=== PATIENT | female | born 1980 | race Caucasian/White ===

== ENCOUNTER 2016-10-29 13:00 | Outpatient (RCR) | payer BC, OTHER ==
--- OUTSIDE RECORDS SUMMARY | 2016-10-05 08:28 | XMS REPORT | Continuity of Care Document ---
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 Name Role Phone RADHA PATINO MD PCP Insurance Providers Payer Name Policy Number Subscriber Name Relationship [facility] [id number] Anni Levy 18 Self / Same As Patient Self Pay Pending Joann Apprv [id number] nAni Levy 18 Self / Same As Patient Advance Directives Directive Response Recorded Date/Time Advance Directives No 12/13/14 3:40am Health Care Power of Director Of Campus Recreation Yes 12/13/14 3:40am Organ Donor No 12/13/14 3:40am Problems Medical Problems Problem Onset Date Status Upper back pain Unknown Active Jaw pain Unknown Active Upper back pain Unknown Active Alcohol intoxication Unknown Active Intoxication Unknown Active Self-inflicted laceration of wrist Unknown Active Suicide attempt Unknown Active Alcohol intoxication Unknown Active Medications Medication Dose Route Sig Days/Qty Instructions Order Date Discontinued Date Status Paroxetine HCl 40 Tab PO AFTERNOON 02/08/11 10/07/14 Discontinued Buspirone HCl 15 Mg PO TWICE A DAY 02/08/11 10/07/14 Discontinued Methadone Hcl 50 Mg PO DAILY 02/08/11 10/07/14 Discontinued Clonazepam 6 Mg PO BEDTIME 02/08/11 10/07/14 Discontinued Prednisone 5 Mg PO DAILY 03/03/12 Active Trazodone Hcl 25-50 Mg PO BEDTIME 03/03/12 12/13/14 Discontinued Paroxetine HCl 1 Tab PO BEDTIME TOTAL OF 60 MG DAILY 04/27/12 Discontinued Alprazolam 1 Mg PO TWICE A DAY 04/27/12 12/13/14 Discontinued Ibuprofen 1 Each PO FOUR TIMES DAILY 05/02/12 05/02/12 Discontinued Ibuprofen 1 Each PO EVERY 6 HOURS 40 Qty 05/02/12 12/13/14 Discontinued Buprenorphine Hcl/Naloxone Hcl 1 Film SL DAILY 10/07/14 Active Fluvoxamine Maleate 300 Mg PO BEDTIME TAKES 3 (100MG) CAPSULES Active Lamotrigine 150 Mg PO TWICE A DAY 10/07/14 Active Propranolol HCl 60 Mg PO TWICE A DAY 10/07/14 Active Alprazolam 1 Mg PO THREE TIMES A DAY 0 Qty 12/13/14 12/13/14 Discontinued Lamotrigine 75 Mg PO NEEDED 0 Qty 12/13/14 12/13/14 Discontinued Naproxen Sodium 440 Mg PO EVERY 4HRS PRN MIGRAINE 0 Qty 12/13/1412/13 Discontinued Prednisone 5 Mg PO DAILY 10 Qty 12/13/14 12/13/14 Discontinued Trazodone Hcl 25-50 Mg PO BEDTIME 12/13/14 Active Naproxen Sodium 440 Mg PO EVERY 4HRS TAKES 2 (220MG) TABLETS 12/13/14 Active Alprazolam 1 Mg PO THREE TIMES A DAY PRN ANXIETY 12/13/14 Active Diphenhydramine HCl (Benadryl) 25 Mg PO DAILY PRN ALLERGIES 12/13/14 Active Hyoscyamine Sulfate 0.125 Mg SL EVERY 4HRS PRN ABDOMINAL PAIN Active Social History Social History Problem Response Recorded Date/Time Alcohol Use Past History 12/13/2014 3:44am 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 Plan of Care No plan of care. Functional Status No functional status results. Allergies, Adverse Reactions, Alerts Allergen Type Severity Reaction Status Last Updated Sulfa (Sulfonamide Antibiotics) ([id number]) Allergy Unknown Active gluten ([id number]) Allergy Unknown Active 12/13/14 Immunizations Name Given Type Date of Influenza Vaccine 07/17/14 Historical Vital Signs No known vital signs results. Results No known relevant diagnostic tests, laboratory data and/or discharge summary. Procedures No known history of procedures. Encounters Encounter Location Date/Time Discharged Recurring [facility] 03/12/15 8:47am
[~2016-10-29 13:00] MED LIST: ALPR.5T PO; ALPR1TAB2 PO; ALPR1TAB7 PO; BSP10T PO; BUPR1FIL3 SL; BUSP10TA95 PO; CALC-149 PO; CEPH-507 PO; CEPH500C PO; CLON2TAB3 PO; CYCL10TA9 PO; DIPH25TA82 PO; ESTR42.52; FLUV100C2 PO; HYDR-3812 PO; HYDR50CA PO; HYOS0.127 SL; IBP600T1 PO; IBUP-1773 PO; LAMO100T65 PO; LAMO150T2 PO; LAMO200T3 PO; LEVO500T2 PO; METH10TA2 PO; MULT-608 PO; NAPR-710 PO; NAPR220T29 PO; ONDA4TAB8 PO; ONDA4TAB8 SL; OXC5T PO; OXYC-471 PO; PHEN-640 PO; PHEN-827 PO; POTASSIUM CITRATE; PRD5T PO; PRED5TAB PO; PRM25T PO; PROP60CA PO; PROP60CA17 PO; PROP60TA16 PO; PRX20T PO; QUET150T PO; QUET25TA73 PO; RANI150C11 PO; RANI300C PO; TAMS0.4C98 PO; TRAM50TA2 PO; TRAZ-144 PO; TRAZ150T42 PO; [UNRECOGNIZED DRUG - OTHER]
== END 2016-12-06 13:16 | disposition home or self-care (01) ==
DX: M54.2 Cervicalgia (principal); M54.6 Pain in thoracic spine

== ENCOUNTER → 2017-01-07 | Outpatient (CLI) | payer BC ==
[2017-01-07 10:44] LABS: BASOPHILS % (AUTO) 1 % (0-10); EOSINOPHILS # (AUTO) 0.4 10^3/uL (0.0-0.3); EOSINOPHILS % (AUTO) 6 % (0-10); LYMPHOCYTES # (AUTO) 2.5 X 10^3 (1.0-4.0); LYMPHOCYTES % (AUTO) 39 % (12-44); MEAN CORPUSCULAR HEMOGLOBIN 29 PG (25-34); MEAN CORPUSCULAR HGB CONC 34 G/DL (32-36); MEAN CORPUSCULAR VOLUME 86 FL (80-99); MEAN PLATELET VOLUME 9.1 FL (7.4-10.4); MONOCYTES # (AUTO) 0.7 X 10^3 (0.0-1.0); MONOCYTES % (AUTO) 11 % (0-12); NEUTROPHILS # (AUTO) 2.8 X 10^3 (1.8-7.8); NEUTROPHILS % (AUTO) 44 % (42-75); PLATELET COUNT 391 10^3/uL (130-400); RED BLOOD COUNT 4.41 10^6/uL (4.35-5.85); RED CELL DISTRIBUTION WIDTH 13.5 % (10.0-14.5); WHITE BLOOD COUNT 6.4 10^3/uL (4.3-11.0)
[2017-01-07 11:03] LABS: ALANINE AMINOTRANSFERASE 18 U/L (0-55); ALBUMIN 4.3 G/DL (3.2-4.5); ANION GAP 10 MMOL/L (5-14); ASPARTATE AMINO TRANSFERASE 18 U/L (5-34); BILIRUBIN,TOTAL 0.2 MG/DL (0.1-1.0); BLOOD UREA NITROGEN 8 MG/DL (7-18); BUN/CREATININE RATIO 10; CARBON DIOXIDE 24 MMOL/L (21-32); CHLORIDE 103 MMOL/L (98-107); CREATININE SERUM 0.77 MG/DL (0.60-1.30); GFR ESTIMATED > 60; GLUCOSE 89 MG/DL (70-105); POTASSIUM 3.9 MMOL/L (3.6-5.0); SODIUM 137 MMOL/L (135-145); TOTAL PROTEIN 6.9 G/DL (6.4-8.2)
[2017-01-07 11:23] LABS: THYROID STIMULATING HORMONE 2.32 UIU/ML (0.35-4.94)
== END ==
LOC: LAB 10:17
PROVIDERS: ATTEND Internal Medicine Endocrinology, Diabetes & Metabolism
DX: E27.49 Other adrenocortical insufficiency (principal); E03.9 Hypothyroidism, unspecified
CPT/HCPCS: 36415; 80053; 82533; 84146; 84443; 85025

== ENCOUNTER 2017-06-21 11:15 | Outpatient (RCR) | payer BC, OTHER | END 2017-07-16 | disposition home or self-care (01) | PROVIDERS: ATTEND Internal Medicine | DX: M54.6 Pain in thoracic spine (principal) ==

== ENCOUNTER → 2017-06-28 | Outpatient (CLI) | payer BC ==
--- NOTE | 2017-06-28 13:40 | Diagnostic Imaging Report ---
PROCEDURE: MR imaging of the brain without contrast. TECHNIQUE: Multiplanar, multisequence MR imaging of the brain was performed without contrast. INDICATION: Migraine headaches. FINDINGS: There is no diffusion restriction to suggest an acute infarct or other diffusion abnormality. There is a CSF intensity oval lesion in the right basal ganglia measuring 1.1 cm in length favored to be related to a prominent perivascular space. There is otherwise no significant abnormality in the wall or white matter signal. The brainstem and cerebellum also appear unremarkable. There is no hydrocephalus. No extra-axial fluid collection is seen. The central vascular flow voids appear grossly unremarkable. The pituitary gland is normal in size. No hypothalamic or pineal region mass. The internal auditory canals and inner ear structures and cerebellopontine angles appear unremarkable. There is minimal mucosal thickening in the ethmoidal air cells. The orbits appear grossly unremarkable. IMPRESSION: No significant abnormality is seen in the brain. There is minimal mucosal thickening in the ethmoidal air cells. Dictated by: Dictated on workstation # [id number]
== END ==
LOC: RAD 07:53
PROVIDERS: ATTEND Internal Medicine
DX: R51 Headache (principal); R20.2 Paresthesia of skin; R53.1 Weakness
CPT/HCPCS: 70551

== ENCOUNTER → 2017-09-19 | Outpatient (CLI) | payer BC ==
--- NOTE | 2017-09-19 18:25 | Diagnostic Imaging Report ---
PROCEDURE: CT abdomen and pelvis without contrast. TECHNIQUE: Multiple contiguous axial images were obtained through the abdomen and pelvis without the use of intravenous contrast. INDICATION: Hematuria. COMPARISON: 01/14/2016. FINDINGS: The lung bases are clear. The liver, the gallbladder, the spleen, the pancreas, and the adrenal glands appear unremarkable for an unenhanced exam. There is a 1.3 cm stone in the left renal pelvis with no significant hydronephrosis. There is a 4 mm stone in the upper pole of the left kidney as well. No ureteric stone is seen. The urinary bladder appears unremarkable. The abdominal aorta is normal in caliber. No para-aortic significantly enlarged node is seen. There is mild wall thickening seen in the colon. Nonspecific fatty stranding is seen in the pelvis. There is suggestion of prior hysterectomy. The cecum projects into the upper mid pelvis, and the appendix is probably in the midline posteriorly in the upper pelvis with no definite abnormality. No significant free fluid or fluid collection is identified. The osseous structures appear grossly unremarkable. IMPRESSION: 1. There is a nonobstructive stone in the left renal pelvis measuring 1.3 cm. 2. Nonobstructive stone in the upper pole of the left kidney measuring 4 mm is seen. 3. There is slight prominent wall thickness of the colon and minimal nonspecific stranding in the pelvis, which could relate to colitis. Correlate clinically. Dictated by: Dictated on workstation # [id number]
--- NOTE | 2017-09-19 21:08 | Diagnostic Imaging Report ---
EXAMINATION: Supine view of the abdomen. INDICATION: Hematuria. FINDINGS: There is a 1.2 cm stone seen in the left flank as confirmed on comparison CT scan from 09/19/2017. It is relatively faint but visible. Multiple calcifications in the pelvis are compatible with phleboliths. IMPRESSION: A 1.2 cm left flank calcification is compatible with left renal pelvis stone as confirmed on CT from the same day. Dictated by: Dictated on workstation # [id number]
== END ==
LOC: RAD 12:38
PROVIDERS: ATTEND Urology
DX: N20.0 Calculus of kidney (principal); K63.89 Other specified diseases of intestine
CPT/HCPCS: 74000; 74176

== ENCOUNTER 2017-09-23 08:00 | Outpatient (CLI) | payer BC ==
[~2017-09-23] VITALS: Ht 167.6 cm; Wt 66.3 kg
[2017-09-23 08:23] VITALS: BP 112/73
[2017-09-23] MEDS ORDERED: HYOS-19 SL (09:58)
[2017-09-23] MEDS ORDERED: LAMO150T2 PO (09:58)
[2017-09-23] MEDS ORDERED: CETI10TA17 PO (09:58)
[2017-09-23] MEDS ORDERED: FLUV100T3 PO ×2 (09:58)
[2017-09-23] MEDS ORDERED: FLUT9.9S NS (09:58)
[2017-09-23] MEDS ORDERED: PROM25TA14 PO (09:58)
[2017-09-23] MEDS ORDERED: POTA15TA PO (09:58)
[2017-09-23] MEDS ORDERED: BUSP10TA95 PO (09:58)
[2017-09-23] MEDS ORDERED: AMIT25TA9 PO (09:58)
[2017-09-23] MEDS ORDERED: FLUO20CA25 PO (09:58)
[2017-09-23] MEDS ORDERED: ESTR42.52 VG (09:58)
[2017-09-23] MEDS ORDERED: BUTA1CAP37 PO (09:58)
[2017-09-23] MEDS ORDERED: PRED5TAB PO (09:58)
[2017-09-23] MEDS ORDERED: LINA290C PO (09:58)
== END 2017-09-23 09:59 ==
LOC: PREOP 08:00
PROVIDERS: ATTEND Urology
DX: Z01.818 Encounter for other preprocedural examination (principal); Z11.2 Encounter for screening for other bacterial diseases; N20.0 Calculus of kidney
CPT/HCPCS: 87081

== ENCOUNTER 2017-10-04 06:00 | Day surgery (SDC) | payer BC ==
[~2017-10-04] VITALS: Ht 167.6 cm; Wt 66.3 kg
[~2017-10-04 06:00] MED LIST changes: +AMIT25TA9 PO; +BUTA1CAP37 PO; +CETI10TA17 PO; +ESTR42.52 VG; +FLUO20CA25 PO; +FLUT9.9S NS; +FLUV100T3 PO; +HYOS-19 SL; +LINA290C PO; +POTA15TA PO; +PROM25TA14 PO
[2017-10-04] MEDS ORDERED: cefTRIAXone 1 GM (ROCEPHIN) VIAL ONE (06:23)
[2017-10-04] MEDS ORDERED: NS (IVPB) 50 ML ONE (06:23)
[2017-10-04] MEDS: LACTATED RINGERS 1,000 ML IV PRN ×2 (06:30→08:50)
--- NOTE | 2017-10-04 06:51 | Progress Note-Pre Operative ---
Pre-Operative Progress Note H&P Reviewed The H&P was reviewed, patient examined and no changes noted. Date Seen by Provider: Oct 04, 2017 Time Seen by Provider: 06:51 Date H&P Reviewed: Oct 04, 2017 Time H&P Reviewed: 06:51 Pre-Operative Diagnosis: LT RENAL STONE CAMPBELL DANIELS MD Oct 04, 2017 6:51 am
--- NOTE | 2017-10-04 06:54 | Progress Note-Post Operative ---
Post-Operative Progess Note Surgeon (s)/Dead Mail Checker (s) Surgeon CAMPBELL DANIELS MD Dead Mail Checker: N/A Pre-Operative Diagnosis LT RENAL STONE Post-Operative Diagnosis SAME Procedure & Operative Findings Date of Procedure 10/04/17 Procedure Performed/Findings LT ESWL Anesthesia Type GENERAL Estimated Blood Loss Estimated blood loss (mL): N/A Specimens/Packing Specimens Removed N/A Packing: N/A CAMPBELL DANIELS MD Oct 04, 2017 6:54 am
--- NOTE | 2017-10-04 06:58 | Discharge Inst-Urology ---
Discharge Inst-Urology Discharge Medications New, Converted, or Re-newed RX: RX on Chart Patient Instructions/Follow Up Plan Please make appointment to been seen in office Tuesday 10/24, KUB prior to it KUB on way home Post ESWL instructions Increase oral fluids for 48 hours and then as needed. Diet and Activity as tolerated. If questions or concerns contact your physician Or seek help at emergency department. CAMPBELL DANIELS MD Oct 04, 2017 6:58 am
[2017-10-04] MEDS ORDERED: CATHETER FLUSH 10 ML SYR IV PRN (07:00)
[2017-10-04] MEDS ORDERED: cefTRIAXone INJECTION 1,000 MG in NS (IVPB) 50 ML IV ONE ×2 (07:00→07:15)
[2017-10-04] MEDS ORDERED: SEVOFLURANE (ULTANE) 15 ML INHAL SOLN ONE ×5 (07:11→09:46)
[2017-10-04] MEDS ORDERED: FUROSEMIDE 40 MG/4 ML INJ (LASIX) ONE (07:11)
[2017-10-04] MEDS ORDERED: KETOROLAC 30 MG/ML VIAL ONE (07:11)
[2017-10-04] MEDS ORDERED: proPOfol 200 MG/20 ML (DIPRIVAN) VIAL IV ONE (07:11)
[2017-10-04] MEDS ORDERED: LIDOCAINE PF 2% 5 ML (XYLOCAINE) VIAL ONE (07:11)
--- NOTE | 2017-10-04 07:11 | Diagnostic Imaging Report ---
INDICATION: Screening prior to ESWL. Comparison made with prior examination from 09/19/2017. FINDINGS: The bowel gas pattern is nonspecific. There are multiple calcified phleboliths in the pelvis. The previously seen stone overlying the left kidney is less apparent on today's exam. Some of this may be obscured by stool and bowel gas. IMPRESSION: The previously seen stone in the proximal left renal collecting system is difficult to see on this exam. Multiple calcified phleboliths in the pelvis. Dictated by: Dictated on workstation # [id number]
[2017-10-04] MEDS ORDERED: fentaNYL INJECTION 100 MCG/2 ML AMP ONE (07:12)
[2017-10-04] MEDS ORDERED: MIDAZOLAM 2 MG/2 ML (VERSED) VIAL ONE (07:13)
[2017-10-04] MEDS ORDERED: KETAMINE HCL 100 MG/ML 5 ML VIAL ONE (07:13)
[2017-10-04 07:25] VITALS: BP 120/80
--- NOTE | 2017-10-04 08:34 | Progress Note-Post Operative ---
Post-Operative Progess Note Surgeon (s)/System Support Specialist (s) Surgeon CAMPBELL DANIELS MD System Support Specialist: N/A Pre-Operative Diagnosis LT RENAL STONE Post-Operative Diagnosis same Procedure & Operative Findings Date of Procedure 10/04/17 Procedure Performed/Findings LT ESWL Anesthesia Type GENERAL Estimated Blood Loss Estimated blood loss (mL): N/A Specimens/Packing Specimens Removed N/A Packing: N/A CAMPBELL DANIELS MD Oct 04, 2017 8:34 am
[2017-10-04] MEDS ORDERED: ONDANSETRON 4 MG/2 ML (SDV) Z0FRAN IVP PRN (09:00)
[2017-10-04 09:30] VITALS: BP 113/78
[2017-10-04] MEDS ORDERED: TAMS0.4C98 PO (09:48)
[2017-10-04] MEDS ORDERED: NITR-68 PO (09:48)
[2017-10-04 10:00] VITALS: BP 107/71
[2017-10-04 10:30] VITALS: BP 121/71
[2017-10-04 11:09] VITALS: BP 121/71
--- NOTE | 2017-10-04 12:37 | Diagnostic Imaging Report ---
INDICATION: Status post ESWL. COMPARISON: Earlier same day. CT abdomen dated 09/29/2017. FINDINGS: Single supine radiographic view of the abdomen was obtained. Previously described left-sided nephrolithiasis is again inconspicuous. Multiple left-sided pelvic phleboliths are noted. No other unexpected extraosseous calcifications or radiopaque foreign bodies are seen. Small bowel loops are nondistended. Bony structures show no gross acute abnormalities. IMPRESSION: 1. Patient's known left-sided nephrolithiasis remains inconspicuous. Dictated by: Dictated on workstation # [id number]
[2017-10-04 13:37] VITALS: BP 121/71
--- NOTE | 2017-10-04 14:45 | OPERATIVE REPORT ---
DATE OF SERVICE: 10/04/2017 PREOPERATIVE DIAGNOSIS: Left ureteral stone. POSTOPERATIVE DIAGNOSIS: Left ureteral stone. OPERATION PERFORMED: Left ESWL. SURGEON: Teto Daniels MD ANESTHESIA: General. COMPLICATIONS: None. PROCEDURE: Under satisfactory general anesthesia, the patient in supine position on the ESWL table, the left renal stone was localized. We started delivering shocks up to 850. Then, the x-ray equipment broke down and waiting to fix it. We tried to do ultrasound. We localized the stone. However, by that time, the x-ray came back and we were able to continue under fluoroscopy to deliver 2500 shocks with what looked as good fragmentation of the stone. The patient received 40 mg of Lasix and 30 mg of Toradol IV. She tolerated the procedure and anesthesia well and was sent to recovery room in stable condition. Job ID: [id number] DocumentID: [id number] Dictated Date: 10/04/2017 08:38:06 Statement Clerk Date: 10/04/2017 14:18:05 Dictated By: TETO DANIELS MD
== END 2017-10-04 11:09 | disposition home or self-care (01) ==
LOC: SDC 06:00
PROVIDERS: ATTEND Urology
DX: N20.1 Calculus of ureter (principal); F31.9 Bipolar disorder, unspecified; F41.9 Anxiety disorder, unspecified; E27.40 Unspecified adrenocortical insufficiency; K58.9 Irritable bowel syndrome, unspecified; R51 Headache; F17.210 Nicotine dependence, cigarettes, uncomplicated; Z79.899 Other long term (current) drug therapy
CPT/HCPCS: 74000

== ENCOUNTER → 2017-10-14 | Outpatient (CLI) | payer BC ==
[~2017-10-14] MED LIST changes: +ACHD5005 PO; -HYDR-3812 PO; +NITR-68 PO
[2017-10-14 12:38] LABS: HEMOGLOBIN 12.8 G/DL (11.5-16.0); RED BLOOD COUNT 4.38 10^6/uL (4.35-5.85); RED CELL DISTRIBUTION WIDTH 13.3 % (10.0-14.5); WHITE BLOOD COUNT 7.5 10^3/uL (4.3-11.0)
[2017-10-14 12:59] LABS: ALANINE AMINOTRANSFERASE 19 U/L (0-55); ALBUMIN 4.3 GM/DL (3.2-4.5); ALKALINE PHOSPHATASE 46 U/L (40-136); BILIRUBIN,TOTAL 0.3 MG/DL (0.1-1.0); BUN/CREATININE RATIO 8; CALCIUM 9.3 MG/DL (8.5-10.1); CARBON DIOXIDE 27 MMOL/L (21-32); CHLORIDE 101 MMOL/L (98-107); CHOLESTEROL 246 MG/DL (< 200); CREATININE SERUM 0.78 MG/DL (0.60-1.30); GFR ESTIMATED > 60; GLUCOSE 97 MG/DL (70-105); HDL CHOLESTEROL 65 MG/DL (40-60); POTASSIUM 4.3 MMOL/L (3.6-5.0); SODIUM 137 MMOL/L (135-145); TOTAL PROTEIN 7.2 GM/DL (6.4-8.2); TRIGLYCERIDES 115 MG/DL (<150); VLDL CHOLESTEROL 23 MG/DL (5-40)
[2017-10-14 13:20] LABS: FREE T4 (FREE THYROXINE) 1.16 NG/DL (0.70-1.48)
== END ==
LOC: LAB 12:04
PROVIDERS: ATTEND Internal Medicine Endocrinology, Diabetes & Metabolism
DX: E27.40 Unspecified adrenocortical insufficiency (principal); E22.1 Hyperprolactinemia; E06.3 Autoimmune thyroiditis
CPT/HCPCS: 36415; 80053; 80061; 84146; 84244; 84439; 84443; 85027

== ENCOUNTER → 2017-11-07 | Outpatient (CLI) | payer BC, MEDICAID ==
--- NOTE | 2017-11-07 12:19 | Diagnostic Imaging Report ---
INDICATION: Renal stones, status post lithotripsy on the left on 10/04/2017. TIME OF EXAM: 11:48 a.m. COMPARISON: Comparison is made with prior radiographs from 10/04/2017. FINDINGS: The bowel gas pattern is unremarkable. The right renal shadow is obscured by bowel contents. There is questionable vague calcific density noted along the medial aspect of the left renal shadow, perhaps urinary tract in origin. Pelvic calcifications are stable and likely phleboliths. IMPRESSION: Questionable tiny left upper urinary tract calculi. The study is otherwise unremarkable. Dictated by: Dictated on workstation # [id number]
== END ==
LOC: RAD 11:18
PROVIDERS: ATTEND Urology
DX: N20.0 Calculus of kidney (principal); Z98.890 Other specified postprocedural states
CPT/HCPCS: 74018

== ENCOUNTER 2018-03-21 10:25 | Outpatient (RCR) | payer MEDICAID | END 2018-06-19 | disposition home or self-care (01) | LOC: LAB 10:25 | PROVIDERS: ATTEND Urology | DX: Z87.442 Personal history of urinary calculi (principal) | CPT/HCPCS: 36415; 82140; 82340; 82507; 82570; 83735; 83945; 83986; 84105; 84133; 84300; 84392; 84560 ==

== ENCOUNTER 2018-08-03 11:30 | Outpatient (CLI) | payer MEDICAID ==
[~2018-08-03] VITALS: Ht 167.6 cm; Wt 66.3 kg
[~2018-08-03 11:30] MED LIST changes: +HYDR10TA13 PO; +HYDR5TAB2 PO; +LAMO200T2 PO; +PROP120C3 PO
== END 2018-08-03 12:27 | disposition home or self-care (01) ==
LOC: PREOP 11:30
PROVIDERS: ATTEND Surgery
DX: Z01.818 Encounter for other preprocedural examination (principal)

== ENCOUNTER 2018-08-07 09:29 | Day surgery (SDC) | payer MEDICAID ==
[~2018-08-07] VITALS: Ht 167.6 cm; Wt 66.3 kg
[2018-08-07 09:35] VITALS: BP 115/81
[2018-08-07] MEDS ORDERED: LACTATED RINGERS 1,000 ML IV STA (09:36)
[2018-08-07] MEDS ORDERED: HURRICAINE EXT TUBE (BENZOCAINE) XX PRN (09:45)
[2018-08-07] MEDS ORDERED: HURRICAINE EXT TUBE (BENZOCAINE) ONE (10:15)
[2018-08-07] MEDS ORDERED: MIDAZOLAM 2 MG/2 ML (VERSED) VIAL ONE ×2 (10:16)
[2018-08-07] MEDS ORDERED: proPOfol 200 MG/20 ML (DIPRIVAN) VIAL IV ONE (10:16)
--- NOTE | 2018-08-07 10:47 | Endo Procedure Record ---
Endo Procedure Report Date of Procedure Last Colonoscopy: Yes (2009) Aug 07, 2018 Surgeon (s) CARIE VILLANUEVA MD Post Procedure/Op Diagnosis EGD: Diffuse gastritis Normal colonoscopy Procedure Performed EGD with antral biopsy for H. pylori Colonoscopy to cecum Description of Procedure Anesthesia Type: Conscious Sedation Specimen(s) collected/removed antral mucosa for H. pylori Description of the Procedure indication for the procedures: This lady came in for an endoscopic assessment of symptoms of reflux disease, along with surveillance colonoscopy. She has a personal history of adenomatous polyps based on a colonoscopy in 2008 and a family history of colon cancer. Informed consent was obtained after reviewing the procedures in detail. Description of the procedures: She was placed in left lateral rectus position and her vital signs were monitored. Conscious sedation was achieved using propofol infusion by our anesthesiologist. EGD/antral biopsy: The flexible gastroscope was introduced down the esophagus, past the stomach, into the proximal duodenum. Findings: Esophagus: Normal Stomach: Diffuse gastritis of mild severity. There was no ulceration. Biopsy for H. pylori was obtained. Duodenum: Normal. She tolerated the procedure well and was turned around in preparation for colonoscopy. Impression: Symptoms of reflux disease. Diffuse gastritis. Helicobacter status pending. Colonoscopy: Digital rectal examination was unremarkable. The colonoscope was then introduced into the rectum and advanced all the way up to the cecum. It was then withdrawn slowly and the mucosa examined in a systematic fashion. There was no abnormality. She tolerated the procedures well and was taken to the nursing area in a stable condition. Impression: Surveillance colonoscopy. No polyps. Positive family history. Recommend repeating in 5 years Copy Copies To 1: RADHA PATINO MD, XAVIER M MD Aug 07, 2018 10:47
--- NOTE | 2018-08-07 10:50 | Discharge Inst-Simple/Standard ---
Discharge Inst-Standard Discharge Medications New, Converted or Re-Newed RX: Other Patient Instructions/Follow Up Plan of Care/Instructions/FU: please call for Protonix 40 Daily for 30 days with 5 refills to her pharmacy. Repeat colonoscopy in 5 years Activity as Tolerated: Yes Discharge Diet: No Restrictions CARIE VILLANUEVA MD Aug 07, 2018 10:49
[2018-08-07 11:00] VITALS: BP 97/54
[2018-08-07 11:20] VITALS: BP 110/77
[2018-08-07 11:37] VITALS: BP 110/77
--- NOTE | 2018-08-07 14:45 | Anesthesia-General Post-Op ---
MAC Patient Condition Mental Status/LOC: Same as Preop Cardiovascular: Satisfactory Nausea/Vomiting: Absent Respiratory: Satisfactory Pain: Controlled Complications: Absent Post Op Complications Complications None Follow Up Care/Instructions Patient Instructions None needed. Anesthesiology Discharge Order Discharge Order Patient is doing well, no complaints, stable vital signs, no apparent adverse anesthesia problems. No complications reported per nursing. BERTHA URBAN CRNA Aug 07, 2018 14:44
== END 2018-08-07 11:35 | disposition home or self-care (01) ==
LOC: ENDO 09:29
PROVIDERS: ATTEND Surgery
DX: Z12.11 Encounter for screening for malignant neoplasm of colon (principal); K29.70 Gastritis, unspecified, without bleeding; Z86.010 Personal history of colon polyps; Z80.0 Family history of malignant neoplasm of digestive organs; Z79.899 Other long term (current) drug therapy; F31.9 Bipolar disorder, unspecified; F41.9 Anxiety disorder, unspecified; F32.81 Premenstrual dysphoric disorder; F17.210 Nicotine dependence, cigarettes, uncomplicated

== ENCOUNTER → 2018-08-11 | Outpatient (CLI) | payer MEDICAID ==
[~2018-08-11] MED LIST changes: +IOHEXOL 350 MG/ML 100 ML (OMNIPAQUE 350) VIAL IV ONE; +NS 250 ML (IVPB) BAG IV ONE
--- NOTE | 2018-08-11 12:32 | Diagnostic Imaging Report ---
PROCEDURE: CT abdomen and pelvis with contrast. TECHNIQUE: Multiple contiguous axial images were obtained through the abdomen and pelvis after administration of intravenous contrast. INDICATION: Abdominal pain and bloating. Patient status post colonoscopy several days earlier. Comparison is made with prior CT from 09/19/2017. FINDINGS: Lung bases are clear. Liver does contain 2 hyperdensities in the right lobe, largest 16 mm in size. These may represent hemangiomas. A smaller lesion is in the inferior right lobe measuring 8 mm. The gallbladder is unremarkable. The pancreas and spleen are unremarkable. No adrenal mass is identified. The kidneys are unremarkable. Aorta is nonaneurysmal. No central retroperitoneal or mesenteric lymphadenopathy is seen. The bowel loops appear to be normal caliber. No free air is seen. There is no free fluid. The bladder is unremarkable. Bony structures are nonacute. IMPRESSION: 1. No evidence of pneumoperitoneum, status post colonoscopy. 2. Hyperdensities in the right lobe of the liver, likely hemangiomas. Followup CT in 6 months could be performed to confirm stability. 3. Study is otherwise unremarkable. Dictated by: Dictated on workstation # [id number]
== END ==
LOC: RAD 10:42
PROVIDERS: ATTEND Surgery
DX: K76.89 Other specified diseases of liver (principal); R14.0 Abdominal distension (gaseous)
CPT/HCPCS: 74177

== ENCOUNTER → 2018-09-19 | Outpatient (CLI) | payer MEDICAID ==
[~2018-09-19] MED LIST changes: -IOHEXOL 350 MG/ML 100 ML (OMNIPAQUE 350) VIAL IV ONE; -NS 250 ML (IVPB) BAG IV ONE
== END ==
LOC: LAB 09:54
PROVIDERS: ATTEND Internal Medicine Endocrinology, Diabetes & Metabolism
DX: E55.9 Vitamin D deficiency, unspecified (principal); E27.40 Unspecified adrenocortical insufficiency
CPT/HCPCS: 36415; 82306; 82533

== ENCOUNTER → 2018-09-28 | Outpatient (CLI) | payer MEDICAID ==
[2018-09-28 14:47] LABS: BUN/CREATININE RATIO 10; CALCIUM 9.3 MG/DL (8.5-10.1); CARBON DIOXIDE 26 MMOL/L (21-32); CHLORIDE 103 MMOL/L (98-107); CREATININE SERUM 0.82 MG/DL (0.60-1.30); GFR ESTIMATED > 60; GLUCOSE 94 MG/DL (70-105); POTASSIUM 4.6 MMOL/L (3.6-5.0); SODIUM 136 MMOL/L (135-145)
== END ==
LOC: LAB 14:16
PROVIDERS: ATTEND Internal Medicine Endocrinology, Diabetes & Metabolism
DX: E27.40 Unspecified adrenocortical insufficiency (principal)
CPT/HCPCS: 36415; 80048; 84443

== ENCOUNTER → 2019-03-27 | Outpatient (CLI) | payer MEDICAID ==
[~2019-03-27] MED LIST changes: +HYDR-3641 PO; -HYDR10TA13 PO; -HYDR5TAB2 PO; +HYDR5TAB8 PO
[2019-03-27 11:54] LABS: ALANINE AMINOTRANSFERASE 12 U/L (0-55); ALBUMIN 4.4 GM/DL (3.2-4.5); ALKALINE PHOSPHATASE 57 U/L (40-136); BILIRUBIN,TOTAL 0.3 MG/DL (0.1-1.0); BUN/CREATININE RATIO 17; CALCIUM 9.6 MG/DL (8.5-10.1); CARBON DIOXIDE 28 MMOL/L (21-32); CHLORIDE 104 MMOL/L (98-107); CHOLESTEROL 218 MG/DL (< 200); CREATININE SERUM 0.86 MG/DL (0.60-1.30); GFR ESTIMATED > 60; GLUCOSE 87 MG/DL (70-105); HDL CHOLESTEROL 60 MG/DL (40-60); POTASSIUM 4.3 MMOL/L (3.6-5.0); SODIUM 140 MMOL/L (135-145); TOTAL PROTEIN 7.2 GM/DL (6.4-8.2); TRIGLYCERIDES 108 MG/DL (<150); VLDL CHOLESTEROL 22 MG/DL (5-40)
== END ==
LOC: LAB 11:13
PROVIDERS: ATTEND Internal Medicine Endocrinology, Diabetes & Metabolism
DX: E27.40 Unspecified adrenocortical insufficiency (principal); E55.9 Vitamin D deficiency, unspecified; E06.3 Autoimmune thyroiditis
CPT/HCPCS: 36415; 80053; 80061; 82306; 82533; 84443

== ENCOUNTER → 2019-10-23 | Outpatient (CLI) | payer MEDICAID ==
[~2019-10-23] MED LIST changes: -TRAM50TA2 PO; +TRM50T PO
[2019-10-23 11:55] LABS: BASOPHILS # (AUTO) 0.1 10^3/uL (0.0-0.1); BASOPHILS % (AUTO) 1 % (0-10); EOSINOPHILS # (AUTO) 1.2 10^3/uL (0.0-0.3); EOSINOPHILS % (AUTO) 13 % (0-10); HEMATOCRIT 40 % (35-52); HEMOGLOBIN 13.5 G/DL (11.5-16.0); LYMPHOCYTES # (AUTO) 1.5 X 10^3 (1.0-4.0); LYMPHOCYTES % (AUTO) 16 % (12-44); MEAN CORPUSCULAR HEMOGLOBIN 29 PG (25-34); MEAN CORPUSCULAR HGB CONC 33 G/DL (32-36); MEAN CORPUSCULAR VOLUME 87 FL (80-99); MEAN PLATELET VOLUME 9.2 FL (7.4-10.4); MONOCYTES # (AUTO) 0.7 X 10^3 (0.0-1.0); MONOCYTES % (AUTO) 8 % (0-12); NEUTROPHILS # (AUTO) 5.8 X 10^3 (1.8-7.8); NEUTROPHILS % (AUTO) 63 % (42-75); PLATELET COUNT 330 10^3/uL (130-400); RED CELL DISTRIBUTION WIDTH 14.2 % (10.0-14.5); WHITE BLOOD COUNT 9.2 10^3/uL (4.3-11.0)
[2019-10-23 12:18] LABS: ALANINE AMINOTRANSFERASE 15 U/L (0-55); ALBUMIN 4.3 GM/DL (3.2-4.5); ALKALINE PHOSPHATASE 57 U/L (40-136); BILIRUBIN,TOTAL 0.2 MG/DL (0.1-1.0); BUN/CREATININE RATIO 14; CALCIUM 9.1 MG/DL (8.5-10.1); CARBON DIOXIDE 26 MMOL/L (21-32); CHLORIDE 102 MMOL/L (98-107); CREATININE SERUM 0.78 MG/DL (0.60-1.30); GFR ESTIMATED > 60; GLUCOSE 89 MG/DL (70-105); POTASSIUM 4.3 MMOL/L (3.6-5.0); SODIUM 139 MMOL/L (135-145)
== END ==
LOC: LAB 11:20
PROVIDERS: ATTEND Internal Medicine Endocrinology, Diabetes & Metabolism
DX: E27.40 Unspecified adrenocortical insufficiency (principal); E55.9 Vitamin D deficiency, unspecified
CPT/HCPCS: 36415; 80053; 82306; 82607; 84443; 85025

== ENCOUNTER → 2020-01-01 | Outpatient (CLI) | payer MEDICAID ==
[~2020-01-01] MED LIST changes: -FLUO20CA25 PO; +FLUO20CA46 PO; +LAMO150T4 PO; -LAMO200T2 PO; +LAMO200T5 PO; -TAMS0.4C98 PO; +TMSL.4C PO
--- NOTE | 2020-01-01 15:56 | Diagnostic Imaging Report ---
EXAMINATION: Supine abdomen at 02:21 p.m. INDICATION: Left-sided pain. FINDINGS: A single supine view was obtained. The prior exam OF 11/07/2017 raised a question of a vague calcification along the medial aspect of the left renal shadow. On this study, the left kidney is mostly obscured by bowel gas and fecal material. There is no evidence for nephrolithiasis. The right kidney is nearly completely obscured by bowel gas and fecal material as well. The phleboliths within the pelvis seen previously are again evident and no different. There is gas in both the large and small bowel in a nonspecific fashion. There is no sign of a bowel obstruction. There is no mass, organomegaly, or pathological calcification evident. The osseous structures are intact. IMPRESSION: 1. There is no evidence for nephrolithiasis or urolithiasis although both kidneys are obscured at least in part by bowel gas and fecal material. If clinical concern regarding an underlying abnormality persists, then CT of the abdomen and pelvis would be recommended. 2. There is no acute abnormality identified otherwise. Dictated by: Dictated on workstation # [id number]
== END ==
LOC: RAD 14:10
PROVIDERS: ATTEND Urology
DX: N20.0 Calculus of kidney (principal)
CPT/HCPCS: 74018

== ENCOUNTER → 2020-04-10 | Outpatient (CLI) | payer MEDICAID ==
[~2020-04-10] MED LIST changes: -HYDR-3641 PO; +HYDR-4164 PO; +HYDR5TAB14 PO; -HYDR5TAB8 PO
[2020-04-10 10:08] LABS: BUN/CREATININE RATIO 9; CARBON DIOXIDE 29 MMOL/L (21-32); CHLORIDE 101 MMOL/L (98-107); CREATININE SERUM 0.91 MG/DL (0.60-1.30); POTASSIUM 4.3 MMOL/L (3.6-5.0); SODIUM 138 MMOL/L (135-145)
[2020-04-10 10:09] LABS: CALCIUM 9.6 MG/DL (8.5-10.1); GFR ESTIMATED > 60; GLUCOSE 93 MG/DL (70-105)
== END ==
LOC: LAB 09:24
PROVIDERS: ATTEND Internal Medicine Endocrinology, Diabetes & Metabolism
DX: E27.40 Unspecified adrenocortical insufficiency (principal); E55.9 Vitamin D deficiency, unspecified
CPT/HCPCS: 36415; 80048; 82306; 82533; 84439; 84481

== ENCOUNTER → 2020-07-08 | Outpatient (CLI) | payer MEDICAID ==
--- NOTE | 2020-07-08 16:28 | Diagnostic Imaging Report ---
INDICATION: Postmenopausal female, long-term glucocorticoid use COMPARISON: 08/28/2015 FINDINGS: AP Spine L2-L4: [BMD (g/cm2): 1.142] [T-Score: -0.5] [Z-Score: -0.5] [BMD Previous: 1.116] [BMD % Change: 2.3] LT Hip Neck: [BMD (g/cm2): 1.066] [T-Score: 0.2] [Z-Score: 0.7] LT Hip Total: [BMD (g/cm2):1.146] [T-Score:1.1] [Z-Score: 1.3] [BMD Previous: 1.151] [BMD % Change: -0.7] RT Hip Neck: [BMD (g/cm2):1.097] [T-Score:0.4] [Z-Score:0.9] RT Hip Total: [BMD (g/cm2):1.148] [T-score:1.1] [Z-Score:1.3] [BMD Previous:1.148] [BMD % Change:0.0] *Indicates significant change from prior examination based on 95% confidence level. World Health Organization criteria for BMD interpretation classify patients as Normal (T-score at or above -1.0), Osteopenic (T-score between -1.0 and -2.5) or Osteoporotic (T-score at or below -2.5). LIMITATIONS AND MODIFICATION: None. FRACTURE RISK (FRAX SCORE): The ten year probability of (%): Major Osteoporotic Fracture: [na] Hip Fracture: [na] IMPRESSION: 1. Normal bone mineral density. 2. No significant change in bone mineral density since the prior examination. 3. See below National Osteoporosis Foundation guidelines on when to potentially initiate pharmacologic therapy. Based on the National Osteoporosis Foundation Guidelines, pharmacologic treatment should be initiated in any of the following, unless clinical conditions suggest otherwise: * Any patient with prior fragility fracture of the hip or vertebrae. A spine fracture indicates 5X risk for subsequent spine fracture and 2X risk for subsequent hip fracture. * Osteoporosis (T-score <-2.5). * Postmenopausal women and men age 50 and older with low bone mass/osteopenia (T-score between -1.0 and -2.5) by DXA and 10-year major osteoporotic fracture greater than 20% or a 10-year probability of hip fracture greater than 3%. These fracture risks are supplied above in the FRAX score, if applicable. * Clinician judgement and/or patient preferences may indicate treatment for people with 10-year fracture probabilities above or below these levels. Dictated by: Dictated on workstation # [id number]
== END ==
LOC: RAD 12:35
PROVIDERS: ATTEND Internal Medicine Endocrinology, Diabetes & Metabolism
DX: Z78.0 Asymptomatic menopausal state (principal); Z79.52 Long term (current) use of systemic steroids
CPT/HCPCS: 77080

== ENCOUNTER → 2020-07-21 | Outpatient (CLI) | payer MEDICAID | LOC: LABNPT 05:55 | PROVIDERS: ATTEND Internal Medicine | DX: Z11.59 Encounter for screening for other viral diseases (principal) | CPT/HCPCS: 87635 ==

== ENCOUNTER 2020-09-30 09:02 | Outpatient (RCR) | payer MEDICAID | END 2020-10-13 | disposition home or self-care (01) | PROVIDERS: ATTEND Nurse Practitioner Family | DX: M46.04 Spinal enthesopathy, thoracic region (principal); Z20.828 Contact with and (suspected) exposure to other viral communicable diseases ==

== ENCOUNTER → 2021-08-24 | Outpatient (CLI) | payer MEDICAID ==
[~2021-08-24] MED LIST changes: -OXYC-471 PO; +OXYC1TAB11 PO; +QUET25TA35 PO; -QUET25TA73 PO
--- NOTE | 2021-08-24 14:55 | Diagnostic Imaging Report ---
EXAMINATION: Abdomen 1 view HISTORY: H/O STONES COMPARISON: 01/01/2020 FINDINGS: There is a moderate amount of gas and stool throughout the colon. Nonobstructive bowel gas pattern. No radiopaque foreign body. The osseous structures are intact. Stable likely phleboliths seen within the pelvis. IMPRESSION: Moderate stool burden without other acute abnormality in the abdomen. Dictated by: Dictated on workstation # [id number]
== END ==
LOC: RAD 13:39
PROVIDERS: ATTEND Urology
DX: Z87.442 Personal history of urinary calculi (principal)
CPT/HCPCS: 74018

== ENCOUNTER → 2022-04-29 | Outpatient (CLI) | payer MEDICAID ==
[~2022-04-29] MED LIST changes: +CYCL10TA25 PO; -FLUO20CA46 PO; +FLUO20CA48 PO; +FLUV100T21 PO; -FLUV100T3 PO
--- NOTE | 2022-04-29 11:03 | Diagnostic Imaging Report ---
PROCEDURE: CT urinary tract, rule out kidney stone. TECHNIQUE: Multiple contiguous axial images were obtained through the abdomen and pelvis without the use of intravenous contrast. Auto Exposure Controls were utilized during the CT exam to meet ALARA standards for radiation dose reduction. INDICATION: Kidney stone. COMPARISON: Comparison is made to prior CT from 08/11/2018. FINDINGS: The lung bases are clear. The liver and gallbladder are unremarkable. The pancreas and spleen are unremarkable. No adrenal mass is detected. No renal calculi are identified. No hydronephrosis is detected. There are numerous calcifications in the pelvis, likely representing phleboliths. No definite ureteric or bladder calculi are seen. Aorta is nonaneurysmal. Bowel loops are normal in caliber. There is no free fluid in the abdomen or pelvis. IMPRESSION: Unremarkable noncontrast CT of the abdomen and pelvis. No definite urinary tract calculi or obstruction is identified. Dictated by: Dictated on workstation # [id number]
--- NOTE | 2022-04-29 12:07 | Diagnostic Imaging Report ---
PROCEDURE: US Hepatic (Liver). TECHNIQUE: Multiple real-time grayscale images were obtained over the right upper quadrant in various projections. INDICATION: Liver hemangioma, follow-up. CORRELATION is made with CT study from 04/29/2022 and 08/11/2018. The liver is normal in size at 14.4 cm. There is a slightly echogenic lesion in the right lobe of the liver measuring 3.0 x 2.1 x 2.5 cm. This does measure larger than CT study from 2018. The noncontrast CT study was compromised due to the lack of IV contrast. No other additional liver lesions were seen. Gallbladder is without stones or sludge. There is no wall thickening or biliary ductal dilatation. Pancreas unremarkable. Aorta is nonaneurysmal. IVC is patent. Right kidney is without calculi or hydronephrosis. IMPRESSION: A 3 cm echogenic liver lesion, suggestive of hemangioma. This however has increased in size since the study from 2018. A dedicated CT abdomen study utilizing the hemangioma protocol would be recommended for further evaluation. Dictated by: Dictated on workstation # [id number]
== END ==
LOC: RAD 09:15
PROVIDERS: ATTEND Nurse Practitioner Family
DX: N20.0 Calculus of kidney (principal); D18.03 Hemangioma of intra-abdominal structures
CPT/HCPCS: 74176; 76705

== ENCOUNTER 2022-05-05 00:45 | Emergency (ER) | payer MEDICAID ==
[~2022-05-05] VITALS: Ht 165.1 cm; Wt 55.0 kg
[2022-05-05] MEDS ORDERED: ONDANSETRON 4 MG/2 ML (SDV) Z0FRAN IVP ONE ×2 (01:45→04:00)
[2022-05-05] MEDS ORDERED: KETOROLAC 30 MG/ML VIAL IVP ONE (01:45)
[2022-05-05 01:59] LABS: BILIRUBIN,URINE NEGATIVE (NEGATIVE); CLARITY,URINE CLEAR; COLOR,URINE YELLOW; GLUCOSE, URINE (UA) NEGATIVE (NEGATIVE); KETONES,URINE NEGATIVE (NEGATIVE); LEUKOCYTE ESTERASE ,URINE NEGATIVE (NEGATIVE); NITRITE,URINE NEGATIVE (NEGATIVE); PROTEIN,URINE NEGATIVE (NEGATIVE)
[2022-05-05 02:08] LABS: BASOPHILS # (AUTO) 0.1 10^3/uL (0.0-0.1); BASOPHILS % (AUTO) 0 % (0-10); EOSINOPHILS # (AUTO) 0.2 10^3/uL (0.0-0.3); EOSINOPHILS % (AUTO) 1 % (0-10); HEMATOCRIT 36 % (35-52); HEMOGLOBIN 11.9 g/dL (11.5-16.0); LYMPHOCYTES # (AUTO) 1.7 10^3/uL (1.0-4.0); LYMPHOCYTES % (AUTO) 11 % (12-44); MEAN CORPUSCULAR HEMOGLOBIN 28 pg (25-34); MEAN CORPUSCULAR HGB CONC 33 g/dL (32-36); MEAN CORPUSCULAR VOLUME 84 fL (80-99); MEAN PLATELET VOLUME 9.4 fL (9.0-12.2); MONOCYTES # (AUTO) 1.2 10^3/uL (0.0-1.0); MONOCYTES % (AUTO) 8 % (0-12); NEUTROPHILS # (AUTO) 12.4 10^3/uL (1.8-7.8); NEUTROPHILS % (AUTO) 80 % (42-75); PLATELET COUNT 431 10^3/uL (130-400); WHITE BLOOD COUNT 15.5 10^3/uL (4.3-11.0)
[2022-05-05 02:10] LABS: AMPHETAMINE SCREEN, URINE NEGATIVE (NEGATIVE); BARBITURATE SCREEN URINE NEGATIVE (NEGATIVE); BENZODIAZEPINES SCREEN URINE NEGATIVE (NEGATIVE); CANNABINOID SCREEN, URINE POSITIVE (NEGATIVE); COCAINE SCREEN URINE NEGATIVE (NEGATIVE); METHADONE STAT NEGATIVE (NEGATIVE); OPIATE SCREEN URINE NEGATIVE (NEGATIVE); OXYCODONE STAT NEGATIVE (NEGATIVE); PROPOXYPHENE STAT NEGATIVE (NEGATIVE); TRICYCLIC ANTIDEPRESSANTS SCRE NEGATIVE (NEGATIVE)
[2022-05-05 02:12] LABS: BACTERIA,URINE NEGATIVE /HPF; SQUAMOUS EPITHELIAL CELL,UR 0-2 /HPF
[2022-05-05 02:19] LABS: ALBUMIN 4.2 GM/DL (3.2-4.5); POTASSIUM 3.6 MMOL/L (3.6-5.0)
[2022-05-05 02:21] LABS: CALCIUM 9.5 MG/DL (8.5-10.1)
[2022-05-05 02:22] LABS: TOTAL PROTEIN 7.1 GM/DL (6.4-8.2)
[2022-05-05 02:24] LABS: BAND NEUTROPHILS 5 %; BILIRUBIN,TOTAL 0.6 MG/DL (0.1-1.0); LYMPHOCYTES % (MANUAL) 11 %; MONOCYTES % (MANUAL) 12 %; NEUTROPHILS % (MANUAL) 72 %; RBC MORPH NORMAL
[2022-05-05 02:26] LABS: CREATININE SERUM 0.84 MG/DL (0.60-1.30)
[2022-05-05] MEDS ORDERED: ANTACID SUSP 30 ML UDC (MYLANTA) PO ONE (04:00)
[2022-05-05] MEDS ORDERED: LIDOCAINE 2% VISCOUS 15 ML UDC PO ONE (04:00)
[2022-05-05] MEDS ORDERED: ANTACID SUSP 30 ML UDC (MYLANTA) ONE (04:10)
[2022-05-05] MEDS ORDERED: ONDANSETRON 4 MG/2 ML (SDV) Z0FRAN ONE (04:10)
[2022-05-05] MEDS ORDERED: LIDOCAINE 2% VISCOUS 15 ML UDC ONE (04:10)
[2022-05-05] MEDS ORDERED: HALOPERIDOL 5 MG/ML (HALDOL) VIAL IV ONE (04:45)
[2022-05-05] MEDS ORDERED: SUCR1TAB36 PO (05:38)
[2022-05-05] MEDS ORDERED: ACHD5005 PO (05:38)
[2022-05-05] MEDS ORDERED: FAMO-119 PO (05:38)
[2022-05-05] MEDS ORDERED: ONDA4TAB11 SL (05:38)
--- NOTE | 2022-05-05 05:38 | ED Abdominal Pain ---
General Chief Complaint: Abdominal/GI Problems Stated Complaint: NOT FEELING WELL,SOB Nursing Triage Note: PT ARRIVAL TO ER WITH COMPLAINT OF ABDOMINAL PAIN X2 HOURS. PT STATES THAT IT HAS ACTUALLY BEEN GOING ON FOR ABOUT 24 HOURS AND WAS A NAGGING DISCOMFORT, BUT NOW HAS REALLY WORSENED 2 HOURS AGO. PT STATES THAT SHE IS ALSO FEELING NAUSEATED. PAIN RATED AT A 8/10 AND DESCRIBED SHARP/ACHE. Source of Information: Patient, Family Exam Limitations: No Limitations History of Present Illness Date Seen by Provider: May 05, 2022 Time Seen by Provider: 01:10 Initial Comments This 41-year-old woman presents to the emergency room with complaints of long- term GI and abdominal problems with pain, nausea, and weight loss. She had a noncontrast CT scan and an ultrasound on April 29. No major abnormalities were found. There was question of hemangioma on the liver and there was radiologist recommendation for a repeat CT scan with hepatic protocol at some point in the future. Patient states the pain was severe tonight similar to kidney stones. She was diaphoretic and lightheaded with this pain. It started more aggressively about 3 hours prior to arrival. She denies cough, shortness of air, diarrhea, vomiting, or fever. She has adrenal insufficiency for which she takes hydrocortisone. She has not missed any doses. She took Klonopin and Levsin at home without improvement in her pain. Patient admits to smoking marijuana with last use about 2 days ago. Allergies and Home Medications Allergies Coded Allergies: Sulfa (Sulfonamide Antibiotics) (Verified Allergy, Mild, ABD PAIN, 08/03/18) Patient Home Medication List Home Medication List Reviewed: Yes Alprazolam (Alprazolam) 1 Mg Tablet, 1 MG PO TID, (Reported) Entered as Reported by: LALA RASHID on 01/21/16 1234 Buprenorphine HCl/Naloxone HCl (Suboxone 8 mg-2 mg Sl Film) 1 Each Film, 1 FILM SL DAILY, (Reported) Entered as Reported by: LALA RASHID on 01/21/16 1245 Buprenorphine HCl/Naloxone HCl (Suboxone 8 mg-2 mg Sl Film) 1 Each Film, 0.5 EACH SL AFTERNOON, (Reported) Entered as Reported by: JACKSON ORTIZ on 08/03/18 1108 Buspirone HCl (Buspirone HCl) 10 Mg Tablet, 10 MG PO DAILY, (Reported) Entered as Reported by: JACKSON ORTIZ on 09/23/17 09 Butalb/Acetaminophen/Caffeine (Ltkhqwaj-Lmjpddjeclkvs-Kspt Cp) 1 Each Capsule, 1 EACH PO Q8H PRN for HEADACHE, (Reported) Entered as Reported by: JACKSON ORTIZ on 09/23/17 09 Cyclobenzaprine HCl (Cyclobenzaprine HCl) 10 Mg Tablet, 10 MG PO TID PRN for SPASMS, (Reported) Entered as Reported by: LALA RASHID on 01/21/16 1234 Estradiol (Estrace Cream) 42.5 Gm Cream.appl, 1.25 GM VG 3X PER WEEK, (Reported) Entered as Reported by: JACKSON ORTIZ on 09/23/17957 Famotidine (Pepcid) 20 Mg Tablet, 20 MG PO BID Prescribed by: MARICARMEN MARTE on 05/05/22 0538 Fluoxetine HCl (Fluoxetine HCl) 20 Mg Capsule, 40 MG PO DAILY, (Reported) Entered as Reported by: JACKSON ORTIZ on 09/23/17957 Hydrocodone/Acetaminophen (Hydrocodone-Acetamin 5-325 mg) 5 Mg-325 Mg Tablet, 1 TAB PO Q6H PRN for PAIN-MODERATE (5-7) Prescribed by: MARICARMEN MARTE on 05/05/22 0539 Hydrocortisone (Hydrocortisone) 5 Mg Tablet, 5 MG PO DAILY, (Reported) Entered as Reported by: JACKSON ORTIZ on 08/03/18 110 Hydrocortisone (Hydrocortisone) 10 Mg Tablet, 10 MG PO DAILY, (Reported) Entered as Reported by: JACKSON ORTIZ on 08/03/18 110 Hyoscyamine Sulfate (Hyoscyamine Sulfate) 0.125 Mg Tab.subl, 0.125 MG SL Q4H, (Reported) Entered as Reported by: JACKSON ORTIZ on 09/23/17957 Lamotrigine (Lamotrigine) 200 Mg Tablet, 200 MG PO DAILY, (Reported) Entered as Reported by: JACKSON ORTIZ on 08/03/18 110 Lamotrigine (Lamotrigine) 150 Mg Tablet, 75 MG PO DAILY, (Reported) Entered as Reported by: JACKSON ORTIZ on 08/03/18 1108 Ondansetron (Ondansetron Odt) 4 Mg Tab.rapdis, 4 MG SL Q4H PRN for NAUSEA/VOMITING Prescribed by: MARICARMEN MARTE on 05/05/22 0538 Potassium Citrate (Urocit-K) 15 Meq Tablet.er, 15 MEQ PO BID, (Reported) Entered as Reported by: JACKSON ORTIZ on 09/23/17 0958 Promethazine HCl (Promethazine Tablet) 25 Mg Tablet, 25 MG PO DAILY PRN for NAUSEA/VOMITING, (Reported) Entered as Reported by: JACKSON ORTIZ on 09/23/17 09 Propranolol HCl (Propranolol HCl ER) 120 Mg Cap.sa.24h, 120 MG PO DAILY, (Reported) Entered as Reported by: JACKSON ORTZI on 08/03/18 110 Sucralfate (Carafate) 1 Gram Tablet, 1 GM PO QID Prescribed by: MARICARMEN MARTE on 05/05/22 0538 Review of Systems Review of Systems Constitutional: no symptoms reported EENTM: No Symptoms Reported Respiratory: No Symptoms Reported Cardiovascular: See HPI Gastrointestinal: See HPI Genitourinary: No Symptoms Reported Musculoskeletal: no symptoms reported Skin: no symptoms reported Psychiatric/Neurological: See HPI Endocrine: No Symptoms Reported Hematologic/Lymphatic: No Symptoms Reported Past Fbxkihf-Jmrgsn-Zondta Hx Patient Social History Tobacco Use?: No Use of E-Cig and/or Vaping dev: No Substance use?: No Alcohol Use?: No Pt feels they are or have been: No Immunizations Up To Date Tetanus Booster (TDap): Unknown Influenza Vaccine Up-to-Date: Yes; Up-to-Date COVID19 Vaccine 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 Seasonal Allergies Seasonal Allergies: No Past Medical History Surgeries: Yes Abdominal (Colonoscopy with polypectomy), Hysterectomy, Renal Currently Using CPAP: No Currently Using BIPAP: No Neurological: Yes Headaches /Migraines Reproductive Disorders: No Female Reproductive Disorders: Denies, Menstrual Problems 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 Sexually Transmitted Disease: No HIV/AIDS: No Genitourinary: Yes Kidney Stones, UTI-Chronic Gastrointestinal: Yes Gastroesophageal Reflux, Chronic Constipation, Polyps, Irritable Bowel Musculoskeletal: Yes Chronic Back Pain Endocrine: Yes Adrenal Disease, Hypothyroidsim, Pituitary Disease HEENT: No Loss of Vision: Denies Hearing Impairment: Denies Cancer: Yes Cervical Did You Recieve Any Treatments: Yes What Type of Treatment Did You: Surgical Intervention Psychosocial: Yes Anxiety, Bipolar, Depression Adverse Reaction/Blood Tranf: No (N/A) Family Medical History ACUTE ANGLE GLAUCOMA 19 MOTHER G8 BROTHER ANXIETY 19 FATHER 19 MOTHER G8 BROTHER Arthritis 19 FATHER 19 MOTHER BASAL CELL CANCER-MOM 19 MOTHER CAD 19 FATHER DEPRESSION 19 FATHER 19 MOTHER G8 BROTHER GLUTEN INTOLERANCE 19 MOTHER Hypertension 19 FATHER IBS 19 FATHER 19 MOTHER G8 BROTHER OCD 19 FATHER 19 MOTHER G8 BROTHER Physical Exam Vital Signs Vital Signs - First Documented 05/05/22 01:26 Temp 36.7 Pulse 57 Resp 18 B/P (MAP) 136/80 (98) Pulse Ox 100 O2 Delivery Room Air Capillary Refill : Less Than 3 Seconds Height/Weight/BMI Height: 5'6.00" Weight: 146lbs. 2.0oz. 66.211945kb; 20.00 BMI Method:Stated General Appearance: WD/WN, mild distress, thin HEENT: normal ENT inspection, other (Oropharynx somewhat dry) Neck: normal inspection Respiratory: lungs clear, normal breath sounds, no respiratory distress Cardiovascular: regular rate, rhythm, no edema, no murmur Gastrointestinal: normal bowel sounds, soft; No distended; tenderness (Generalized) Extremities: non-tender, normal inspection, no pedal edema Neurologic/Psychiatric: no motor/sensory deficits, alert, oriented x 3, other (Mildly anxious) Skin: normal color, warm/dry Progress/Results/Core Measures Results/Orders Lab Results Laboratory Tests Test 05/05/22 01:15 05/05/22 01:45 05/05/22 01:59 Range/Units Influenza Type A (RT-PCR) Not Detected Not Detecte Influenza Type B (RT-PCR) Not Detected Not Detecte SARS-CoV-2 RNA (RT-PCR) Not Detected Not Detecte Urine Color YELLOW Urine Clarity CLEAR Urine pH 6.0 5-9 Urine Specific [place] <=1.005 1.016-1.022 Urine Protein NEGATIVE NEGATIVE Urine Glucose (UA) NEGATIVE NEGATIVE Urine Ketones NEGATIVE NEGATIVE Urine Nitrite NEGATIVE NEGATIVE Urine Bilirubin NEGATIVE NEGATIVE Urine Urobilinogen 0.2 < = 1.0 MG/DL Urine Leukocyte Esterase NEGATIVE NEGATIVE Urine RBC (Auto) NEGATIVE NEGATIVE Urine RBC NONE /HPF Urine WBC NONE /HPF Urine Squamous Epithelial Cells 0-2 /HPF Urine Crystals NONE /LPF Urine Bacteria NEGATIVE /HPF Urine Casts NONE /LPF Urine Mucus NEGATIVE /LPF Urine Culture Indicated NO Urine Opiates Screen NEGATIVE NEGATIVE Urine Oxycodone Screen NEGATIVE NEGATIVE Urine Methadone Screen NEGATIVE NEGATIVE Urine Propoxyphene Screen NEGATIVE NEGATIVE Urine Barbiturates Screen NEGATIVE NEGATIVE Ur Tricyclic Antidepressants Screen NEGATIVE NEGATIVE Urine Phencyclidine Screen NEGATIVE NEGATIVE Urine Amphetamines Screen NEGATIVE NEGATIVE Urine Methamphetamines Screen NEGATIVE NEGATIVE Urine Benzodiazepines Screen NEGATIVE NEGATIVE Urine Cocaine Screen NEGATIVE NEGATIVE Urine Cannabinoids Screen POSITIVE H NEGATIVE White Blood Count 15.5 H 4.3-11.0 10^3/uL Red Blood Count 4.30 3.80-5.11 10^6/uL Hemoglobin 11.9 11.5-16.0 g/dL Hematocrit 36 35-52 % Mean Corpuscular Volume 84 80-99 fL Mean Corpuscular Hemoglobin 28 25-34 pg Mean Corpuscular Hemoglobin Concent 33 32-36 g/dL Red Cell Distribution Width 14.2 10.0-14.5 % Platelet Count 431 H 130-400 10^3/uL Mean Platelet Volume 9.4 9.0-12.2 fL Immature Granulocyte % (Auto) 0 % Neutrophils (%) (Auto) 80 H 42-75 % Lymphocytes (%) (Auto) 11 L 12-44 % Monocytes (%) (Auto) 8 0-12 % Eosinophils (%) (Auto) 1 0-10 % Basophils (%) (Auto) 0 0-10 % Neutrophils # (Auto) 12.4 H 1.8-7.8 10^3/uL Lymphocytes # (Auto) 1.7 1.0-4.0 10^3/uL Monocytes # (Auto) 1.2 H 0.0-1.0 10^3/uL Eosinophils # (Auto) 0.2 0.0-0.3 10^3/uL Basophils # (Auto) 0.1 0.0-0.1 10^3/uL Immature Granulocyte # (Auto) 0.1 0.0-0.1 10^3/uL Neutrophils % (Manual) 72 % Lymphocytes % (Manual) 11 % Monocytes % (Manual) 12 % Band Neutrophils 5 % Blood Morphology Comment NORMAL Sodium Level 139 135-145 MMOL/L Potassium Level 3.6 3.6-5.0 MMOL/L Chloride Level 103 98-107 MMOL/L Carbon Dioxide Level 25 21-32 MMOL/L Anion Gap 11 5-14 MMOL/L Blood Urea Nitrogen 7 7-18 MG/DL Creatinine 0.84 0.60-1.30 MG/DL Estimat Glomerular Filtration Rate 89 BUN/Creatinine Ratio 8 Glucose Level 118 H 70-105 MG/DL Calcium Level 9.5 8.5-10.1 MG/DL Corrected Calcium 9.3 8.5-10.1 MG/DL Total Bilirubin 0.6 0.1-1.0 MG/DL Aspartate Amino Transf (AST/SGOT) 89 H 5-34 U/L Alanine Aminotransferase (ALT/SGPT) 35 0-55 U/L Alkaline Phosphatase 62 40-136 U/L C-Reactive Protein High Sensitivity 0.07 0.00-0.50 MG/DL Total Protein 7.1 6.4-8.2 GM/DL Albumin 4.2 3.2-4.5 GM/DL Lipase 35 8-78 U/L Serum Test, Qualitative NEGATIVE NEGATIVE My Orders Orders - MARICARMEN GODWIN MD Covid 19 Inhouse Test (05/05/22 01:10) Influenza A And B By Pcr (05/05/22 01:10) Cbc With Automated Diff (05/05/22 01:43) Comprehensive Metabolic Panel (05/05/22 01:43) Hs C Reactive Protein (05/05/22 01:43) Hcg,Qualitative Serum (05/05/22 01:43) Ua Culture If Indicated (05/05/22 01:43) Ed Iv/Invasive Line Start (05/05/22 01:43) Ketorolac Injection (Toradol Injection) (05/05/22 01:45) Ondansetron Injection (Zofran Injectio (05/05/22 01:45) Drug Screen Stat (Urine) (05/05/22 01:43) Lipase (05/05/22 01:43) Manual Differential (05/05/22 01:59) Ondansetron Injection (Zofran Injectio (05/05/22 04:00) Lidocaine 2% Viscous 15 Ml (Xylocaine Vi (05/05/22 04:00) Antacid Suspension (Mylanta Suspension (05/05/22 04:00) Ondansetron Injection (Zofran Injectio (05/05/22 04:10) Lidocaine 2% Viscous 15 Ml (Xylocaine Vi (05/05/22 04:10) Antacid Suspension (Mylanta Suspension (05/05/22 04:10) Haloperidol Injection (Haldol Injectio (05/05/22 04:45) Medications Given in ED Current Medications Medications Dose Ordered Sig/Ritchie Route Start Time Stop Time Status Last Admin Dose Admin Al Hydrox/Mg Hydrox/Simethicone 30 ml ONCE ONCE PO 05/05/22 04:00 05/05/22 04:01 DC 05/05/22 04:14 30 ML Haloperidol Lactate 2.5 mg ONCE ONCE IV 05/05/22 04:45 05/05/22 04:46 DC 05/05/22 04:51 2.5 MG Ketorolac Tromethamine 15 mg ONCE ONCE IVP 05/05/22 01:45 05/05/22 01:46 DC 05/05/22 01:59 15 MG Lidocaine HCl 15 ml ONCE ONCE PO 05/05/22 04:00 05/05/22 04:01 DC 05/05/22 04:14 15 ML Ondansetron HCl 4 mg ONCE ONCE IVP 05/05/22 01:45 05/05/22 01:46 DC 05/05/22 01:58 4 MG Ondansetron HCl 4 mg ONCE ONCE IVP 05/05/22 04:00 05/05/22 04:01 DC 05/05/22 04:14 4 MG Vital Signs/I&O 05/05/22 05/05/22 01:26 05:50 Temp 36.7 Pulse 57 74 Resp 18 16 B/P (MAP) 136/80 (98) 129/81 Pulse Ox 100 98 O2 Delivery Room Air Room Air Blood Pressure Mean: 98 Progress Progress Note : Progress Note Patient was initially treated with Zofran and Toradol. She had modest improvement in her symptoms. Work-up was relatively unremarkable except for leukocytosis. Patient was offered the repeat CT scan with hepatic protocol as recommended on her prior imaging report. She declines at this time citing concerns about radiation exposure. She would like to pursue more conservative therapy instead. She was given an additional dose of Zofran followed by GI cocktail. Unfortunately, she gagged on this and regurgitated it. As result there was no improvement in pain. We did discuss the potential of cannabis hyperemesis syndrome as a cause of her symptoms. A dose of Haldol was administered which did result in improvement of her symptoms. She was able to tolerate oral water after that. She was ultimately discharged home. Review discharge instructions for further discussion. Departure Impression Primary Impression: Upper abdominal pain Additional Impression: Nausea & vomiting Qualified Codes: R11.2 - Nausea with vomiting, unspecified Disposition: 01 HOME, SELF-CARE Condition: Improved Departure-Patient Inst. Decision time for Depature: 05:33 Referrals: NO,LOCAL PHYSICIAN (PCP) Primary Care Physician ELSA CANTU DO (Family) Primary Care Physician Patient Instructions: Abdominal Pain, Adult ED Add. Discharge Instructions: Start with a noncarbonated clear liquid diet and gradually advance your diet with small quantities of bland food as tolerated. Abstain from marijuana use as this may trigger symptoms of abdominal pain and vomiting and may lead to cannabis hyperemesis syndrome. Try using Pepcid and Carafate as prescribed for the next 2 weeks. Additionally avoid the following: Eating large meals, eating close to bedtime, caffeine, carbonation, chocolate, citrus fruits and juices, tomato products, mints, alcohol, tobacco, spicy foods, NSAID medications such as ibuprofen or naproxen, fatty/greasy foods, or anything else you know irritates your stomach. Use the Zofran (ondansetron) as prescribed for nausea and vomiting. Add Phenergan (promethazine) as previously prescribed for nausea not sufficiently controlled by Zofran. Follow-up with Dr. Vázquez as soon as possible. If symptoms have not improved by the time of follow-up, you may discuss possibilities for further evaluation which might include endoscopy, hepatobiliary scan, etc. at Dr. Vázquez's discretion. Return to the ER if symptoms worsen despite following these instructions. All discharge instructions reviewed with patient and/or family. Voiced understanding. Scripts Sucralfate (Carafate) 1 Gram Tablet 1 GM PO QID, #60 TAB Crush and mix or dissolve into 5-10 mL water to make slurry. Take 30 min before meals and at bedtime. Prov: MARICARMEN GODWIN MD 05/05/22 Famotidine (Pepcid) 20 Mg Tablet 20 MG PO BID, #30 TAB Prov: MARICARMEN GODWIN MD 05/05/22 Hydrocodone/Acetaminophen (Hydrocodone-Acetamin 5-325 mg) 5 Mg-325 Mg Tablet 1 TAB PO Q6H PRN for PAIN-MODERATE (5-7), #8 TAB Prov: MARICARMEN GODWIN MD 05/05/22 Ondansetron (Ondansetron Odt) 4 Mg Tab.rapdis 4 MG SL Q4H PRN for NAUSEA/VOMITING, #10 TAB Prov: MARICARMEN GODWIN MD 05/05/22 Copy Copies To 1: RADHA VÁZQUEZ MD, JOSHUA T MD May 05, 2022 05:38
[2022-05-05 05:50] VITALS: BP 129/81
== END 2022-05-05 05:56 | disposition home or self-care (01) ==
LOC: EDUNIT# 00:45 → ER 00:51
DX: R10.84 Generalized abdominal pain (principal); R11.2 Nausea with vomiting, unspecified; D72.829 Elevated white blood cell count, unspecified; Z20.822 Contact with and (suspected) exposure to COVID-19
CPT/HCPCS: 36415; 80053; 80306; 81000; 83690; 84703; 85007; 85027; 86141; 87636

== ENCOUNTER → 2022-08-18 | Outpatient (CLI) | payer MEDICAID ==
[~2022-08-18] MED LIST changes: +CATHETER FLUSH 10 ML SYR IV PRN; +FAMO-119 PO; +HOLD METFORMIN - RECEIVED CONTRAST 20 ML VIAL IV SCH; +IOHEXOL 350 MG/ML 100 ML (OMNIPAQUE 350) VIAL IV ONE; +NS 100 ML (IVPB) BAG IV ONE; +ONDA4TAB11 SL; +SUCR1TAB36 PO
--- NOTE | 2022-08-18 13:04 | Diagnostic Imaging Report ---
PROCEDURE: CT head with and without contrast. TECHNIQUE: Multiple contiguous axial images were obtained through the brain before and after the administration of intravenous contrast. Auto Exposure Controls were utilized during the CT exam to meet ALARA standards for radiation dose reduction. INDICATION: Migraines for three weeks. COMPARISON: None. FINDINGS: No large acute territorial ischemia, mass, or hemorrhage. No midline shift or mass effect. No abnormal enhancement. Prominent perivascular spaces are seen in the right basal ganglia. The ventricles, cortical sulci, and basilar cisterns are patent and unremarkable. The calvarium is intact. The visualized paranasal sinuses are clear. IMPRESSION: 1. No large acute territorial ischemia, mass, or hemorrhage. No abnormal enhancement. If symptoms persist, consider MRI of the brain to further evaluate. Dictated by: Dictated on workstation # [id number]
== END ==
LOC: RAD 12:20
PROVIDERS: ATTEND Nurse Practitioner Family
DX: G43.909 Migraine, unspecified, not intractable, without status migrainosus (principal)
CPT/HCPCS: 70470

== ENCOUNTER → 2022-12-02 | Outpatient (CLI) | payer MEDICAID ==
[~2022-12-02] MED LIST changes: -CATHETER FLUSH 10 ML SYR IV PRN; -HOLD METFORMIN - RECEIVED CONTRAST 20 ML VIAL IV SCH; -IOHEXOL 350 MG/ML 100 ML (OMNIPAQUE 350) VIAL IV ONE; -NS 100 ML (IVPB) BAG IV ONE
--- NOTE | 2022-12-02 14:26 | Diagnostic Imaging Report ---
INDICATION: Constipation FINDINGS: The bowel gas pattern unremarkable. There is no abnormal fecal loading. No evidence for impaction. No findings of obstruction. Pelvic phleboliths noted. IMPRESSION: Normal bowel gas pattern with no abnormal fecal loading. Dictated by: Dictated on workstation # [id number]
== END ==
LOC: RAD 11:09
PROVIDERS: ATTEND Nurse Practitioner Family
DX: K59.00 Constipation, unspecified (principal)
CPT/HCPCS: 74018

== ENCOUNTER → 2023-07-07 | Outpatient (CLI) | payer MEDICAID ==
--- NOTE | 2023-07-08 09:27 | Diagnostic Imaging Report ---
Indication: Routine screening. Comparison is made with prior mammogram from 06/05/2014. 2-D and 3-D bilateral screening mammography was performed with CAD. Both breasts are heterogeneously dense, limiting the sensitivity of mammography. The parenchymal pattern is stable. No mass or malignant-appearing microcalcifications are seen. There are scattered benign calcifications. Axillae are unremarkable. IMPRESSION: BI-RADS Category 2 No mammographic features suspicious for malignancy are identified. ACR BI-RADS Category 2: Benign findings. Result letter will be mailed to the patient. Note: At least 10% of breast cancer is not imaged by mammography. Dictated by: Dictated on workstation # [id number]
== END ==
LOC: RAD 14:59
PROVIDERS: ATTEND Obstetrics & Gynecology
DX: Z12.31 Encounter for screening mammogram for malignant neoplasm of breast (principal)
CPT/HCPCS: 77063; 77067

== ENCOUNTER 2023-08-09 16:05 | Outpatient (RCR) | payer BC, MEDICAID | END 2023-08-16 | disposition home or self-care (01) | PROVIDERS: ATTEND Nurse Practitioner Family | DX: M54.12 Radiculopathy, cervical region (principal) ==

== ENCOUNTER 2023-09-12 10:33 | Outpatient (RCR) | payer BC | END 2023-09-15 | disposition home or self-care (01) | PROVIDERS: ATTEND Nurse Practitioner Family | DX: M54.12 Radiculopathy, cervical region (principal) ==